=== PATIENT | female | born 2000 | race African-American/Black ===

== ENCOUNTER 2018-01-09 07:20 | Emergency (ER) | payer OTHER ==
[~2018-01-09] VITALS: Ht 149.9 cm; Wt 54.2 kg
[~2018-01-09 07:20] MED LIST: ADVIL,NUPRIN,M200 MG PO; BACTRIM,SEPT1 TABLET PO; MACRODANTIN100 MG PO; REGLAN5 MG PO; ZOFRAN ODT4 MG PO; ZOFRAN4 MG PO
[2018-01-09] MEDS ORDERED: ZOFRAN ODT4 MG PO (07:50)
[2018-01-09 08:58] VITALS: BP 116/65
== END 2018-01-09 09:01 | disposition home or self-care (01) ==
LOC: EME 07:20
DX: K52.9 Noninfective gastroenteritis and colitis, unspecified (principal); E86.0 Dehydration; R00.0 Tachycardia, unspecified
CPT/HCPCS: 99281; 99284; J7030

== ENCOUNTER 2018-03-28 14:09 | Emergency (ER) | payer OTHER ==
[~2018-03-28] VITALS: Ht 149.9 cm; Wt 50.0 kg
[2018-03-28 14:44] LABS: HEMATOCRIT 39.2 % (36.0-46.0); HEMOGLOBIN 14.2 G/DL (11.9-15.5); MCH 31.6 PG (29.0-34.0); MCHC 36.2 G/DL (30.0-36.0); MCV 87.1 FL (83-99); PLATELET COUNT 211 K/uL (156-360); RBC DIS.WIDTH-CV 12.3 % (11.8-14.6); RBC DIS.WIDTH-SD 39.4 % (39-53); WHITE BLOOD COUNT 10.6 K/uL (4.1-10.2)
[2018-03-28 14:53] LABS: CHLORIDE 106 mEq/L (99-109); POTASSIUM 4.1 mEq/L (3.7-5.4); SODIUM 140 mEq/L (136-147)
[2018-03-28 14:55] LABS: GLUCOSE 154 mg/dL (70-99)
[2018-03-28 14:57] LABS: TOTAL BILIRUBIN 1.5 mg/dL (0.0-1.0)
[2018-03-28 14:59] LABS: ALKALINE PHOSPHATASE 65 IU/L (3-129); CREATININE 0.8 mg/dL (0.6-1.3); GFR ESTIMATE (CALCULATED) > 59 mL/min/
[2018-03-28 15:00] LABS: UREA NITROGEN (BUN) 14 mg/dL (9-23)
[2018-03-28 15:01] LABS: AST (GOT) 22 IU/L (2-34)
[2018-03-28 15:02] LABS: ALT (GPT) 12 IU/L (3-49)
[2018-03-28 15:07] LABS: QUANTITATIVE HCG < 4.0 MIU/ML
[2018-03-28 16:10] LABS: APPEARANCE CLEAR ((CLEAR)); BILIRUBIN NEGATIVE; BLOOD NEGATIVE; COLOR YELLOW ((YELLOW)); GLUCOSE (STRIP) NEGATIVE; KETONES 20; LEUKOCYTES NEGATIVE; NITRITE NEGATIVE; PROTEIN (STRIP) 100; SPECIFIC GRAVITY 1.021 (1.000-1.030)
[2018-03-28 16:20] LABS: BACTERIA NONE SEEN /HPF; CALCIUM OXALATE CRYSTALS 1+ /HPF; EPITHELIAL CELLS 1+ /HPF; HYALINE CASTS 0-5 /LPF; MUCUS TRACE /LPF; RED BLOOD CELLS 0-5 /HPF (0-5); UCUL ADDED? NO; WHITE BLOOD CELLS 0-5 /HPF (0-5)
[2018-03-28] MEDS ORDERED: ZOFRAN ODT4 MG PO (16:23)
[2018-03-28 16:40] VITALS: BP 119/72
[2018-03-29] MEDS ORDERED: REGLAN5 MG PO (13:51)
[2018-03-29] MEDS ORDERED: BENTYL20 MG PO (13:51)
== END 2018-03-28 16:41 | disposition home or self-care (01) ==
LOC: EME 14:09
DX: K52.9 Noninfective gastroenteritis and colitis, unspecified (principal)
CPT/HCPCS: 80053; 81003; 84702; 85027; 99281; 99284; J2405; J7030

== ENCOUNTER 2018-03-29 10:27 | Emergency (ER) | payer OTHER ==
[~2018-03-29] VITALS: Ht 149.9 cm; Wt 58.8 kg
[2018-03-29 11:35] LABS: HEMATOCRIT 36.1 % (36.0-46.0); HEMOGLOBIN 13.4 G/DL (11.9-15.5); MCHC 37.1 G/DL (30.0-36.0); MCV 86.2 FL (83-99); PLATELET COUNT 191 K/uL (156-360); RBC DIS.WIDTH-CV 12.1 % (11.8-14.6); RED BLOOD COUNT 4.19 M/uL (3.80-5.20); WHITE BLOOD COUNT 11.4 K/uL (4.1-10.2)
[2018-03-29 12:02] LABS: ALBUMIN 4.8 g/dL (3.2-4.8)
[2018-03-29 12:03] LABS: CHLORIDE 107 mEq/L (99-109); POTASSIUM 3.6 mEq/L (3.7-5.4); SODIUM 142 mEq/L (136-147)
[2018-03-29 12:05] LABS: GLUCOSE 120 mg/dL (70-99); TOTAL PROTEIN 7.9 g/dL (6.4-8.3)
[2018-03-29 12:08] LABS: ALKALINE PHOSPHATASE 61 IU/L (3-129)
[2018-03-29 12:09] LABS: CREATININE 0.8 mg/dL (0.6-1.3); GFR ESTIMATE (CALCULATED) > 59 mL/min/
[2018-03-29 12:10] LABS: AST (GOT) 16 IU/L (2-34); UREA NITROGEN (BUN) 16 mg/dL (9-23)
[2018-03-29 12:12] LABS: ALT (GPT) 10 IU/L (3-49); LIPASE 81 U/L (1.0-51.0)
[2018-03-29 12:20] LABS: QUANTITATIVE HCG < 4.0 MIU/ML; TOTAL BILIRUBIN 0.8 mg/dL (0.0-1.0)
[2018-03-29] MEDS ORDERED: REGLAN5 MG PO (13:51)
[2018-03-29] MEDS ORDERED: BENTYL20 MG PO (13:51)
[2018-03-29 14:34] VITALS: BP 125/67
== END 2018-03-29 14:43 | disposition home or self-care (01) ==
LOC: EME 10:27
PROVIDERS: Nurse Practitioner Family
DX: K52.9 Noninfective gastroenteritis and colitis, unspecified (principal); R74.8 Abnormal levels of other serum enzymes
CPT/HCPCS: 74177; 80053; 81003; 83690; 84702; 85027; 99281; 99285; J1885; J2765; J7030